=== PATIENT | female | born 1960 | race Two or more races ===

== ENCOUNTER 2018-12-16 14:45 | Emergency (ER) | payer BC ==
[~2018-12-16] VITALS: Ht 157.5 cm; Wt 70.8 kg
[2018-12-16 15:13] VITALS: BP 116/63
--- NOTE | 2018-12-16 16:13 | NUR ---
Patient discharged to home in stable condition. Written and verbal after care instructions given. Patient verbalizes understanding of instruction.
== END 2018-12-16 16:13 | disposition home or self-care (01) ==
LOC: ER 14:49
DX: H11.32 Conjunctival hemorrhage, left eye (principal); Z91.09 Other allergy status, other than to drugs and biological substances
CPT/HCPCS: Z7502

== ENCOUNTER 2018-12-20 11:23 | Outpatient (CLI) | payer BC ==
[2018-12-20 12:36] LABS: BASOPHILS % (AUTO) 0.9 % (0.0-2.0); EOSINOPHILS % (AUTO) 3.5 % (0.0-6.0); HEMATOCRIT 42 % (33-45); HEMOGLOBIN 14.5 g/dL (11.5-14.8); LYMPHOCYTES # (AUTO) 2.2 /CMM (0.8-4.8); MEAN CORPUSCULAR HGB CONC 34 g/dl (31.0-36.0); MEAN CORPUSCULAR VOLUME 93 fL (82-100); MONOCYTES # (AUTO) 0.3 /CMM (0.1-1.30); NEUTROPHILS # (AUTO) 2.4 /CMM (1.8-8.9); NEUTROPHILS % (AUTO) 46.6 % (43.0-81.0); PLATELET COUNT (AUTO) 254 /CMM (150-450); RED BLOOD CELL COUNT(AUTO) 4.54 MIL/uL (4.0-5.2); WHITE BLOOD COUNT (AUTO) 5.2 K/uL (4.3-11.0)
[2018-12-20 12:50] LABS: ALANINE AMINOTRANSFERASE 25 U/L (12-78); ALBUMIN 3.8 g/dL (3.4-5.0); ALKALINE PHOSPHATASE 110 U/L (46-116); ASPARTATE AMINOTRANSFERASE 16 U/L (15-37); BILIRUBIN,TOTAL 0.5 mg/dL (0.2-1.0); CALCIUM, SERUM 9.2 mg/dL (8.5-10.1); CARBON DIOXIDE 25 mmol/L (21-32); CHLORIDE 106 mmol/L (98-107); CREATININE 0.9 mg/dL (0.6-1.3); GLUCOSE 100 mg/dL (74-106); POTASSIUM 4.1 mmol/L (3.5-5.1); SODIUM SERUM 141 mmol/L (136-145); TOTAL PROTEIN, SERUM 7.6 g/dL (6.4-8.2); UREA NITROGEN, BLOOD 15 mg/dL (7-18)
[2018-12-20 13:01] LABS: FERRITIN 91 ng/mL (8-388); THYROID STIMULATING HORMONE 1.872 uIU/mL (0.358-3.74)
[2018-12-20 13:03] LABS: C-REACTIVE PROTEIN < 0.2 mg/dL (0.0-0.9)
[2018-12-20 13:32] LABS: IRON, SERUM 110 ug/dl (50-175); TOTAL IRON BINDING CAPACITY 263 ug/dl (250-450)
== END 2018-12-20 23:59 | disposition home or self-care (01) ==
LOC: LAB 11:23
DX: H57.89 Other specified disorders of eye and adnexa (principal)
CPT/HCPCS: 36415; 80053-TC; 82728-TC; 83540-TC; 84439-TC; 84443-TC; 85025-TC; 85652-TC; 86140-TC; 86431-TC